=== PATIENT | female | born 1995 | race Two or more races ===

== ENCOUNTER 2021-02-13 14:08 | Outpatient (REF) | payer OTHER, SELFPAY | END 2021-02-13 14:09 | disposition home or self-care (01) | LOC: HO.SCI 14:08 | PROVIDERS: PCP Physician Assistant Medical; Visit Provider Psychiatry & Neurology Neurology | DX: Z13.89 Encounter for screening for other disorder (principal) ==

== ENCOUNTER → 2021-02-20 13:25 | Outpatient (REF) | payer OTHER, SELFPAY ==
--- NOTE | 2021-02-20 13:33 | ECG_ITS ---
Hook-up date: 2021-02-20 13:43:00 Duration: 47:59:00 Test Indications: SYNCOPE Medications: [id number] QRS complexes 3 Ventricular ectopics which represent <1 % of total QRS comp. * Supraventricular ectopics which represent % of total QRS comp. * Paced QRS complexs which represent % of total QRS comp. VENTRICULAR ECTOPY 3 Isolated 0 Bigeminal Cycles 0 Couplets 0 Runs 0 Beats in Runs * Beats LONGEST at * BPM at :: -- * Beats FASTEST at * BPM at :: -- SUPRAVENTRICULAR ECTOPY * Isolated * Couplets * Runs * Beats in Runs * Beats LONGEST at * BPM at :: -- * Beats FASTEST at * BPM at :: -- HEART RATES 49 MIN at 05:47:50 2021-02-21 87 AVG 183 MAX at 16:45:42 2021-02-21 LONGEST RR 1.3280 secs at 05:47:44 2021-02-21 S-T LEVELS Channel 1 - 128 mm at 13:43:00 2021-02-20 - 128 mm at 13:43:00 2021-02-20 Channel 2 - 128 mm at 13:43:00 2021-02-20 - 128 mm at 13:43:00 2021-02-20 Channel 3 - 128 mm at 03:30:21 -- - 128 mm at 03:30:21 Basic rhythm Normal sinus rhythm No long pause or profound bradycardia Frequent Sinus tachycardia No dangerous dysrhythm periods No diary submitted Referred By: Nadine Rueda Overread By: EL BACK MD
== END ==
LOC: HO.CARD 13:25
PROVIDERS: Visit Provider Psychiatry & Neurology Neurology
DX: R55 Syncope and collapse (principal)
CPT/HCPCS: 93225; 93226

== ENCOUNTER 2021-09-29 01:33 | Emergency (ER) | payer OTHER, SELFPAY ==
[2021-09-29] VITALS (7 sets, daily range): BP systolic 99–121; BP diastolic 55–90; PULSE 84–116; RESP 13–16; TEMP 36.4–36.7; O2SAT 95–98; BMI 28.4
--- NOTE | 2021-09-29 01:49 | PC.NURSE ---
Addendum entered by Bismark Carroll RN 09/29/21 06:44: Pt's mother also stated that pt has a hx of syncope and has been followed by cardiology and neurology, but with no significant findings. Pt's friend thought pt had a seizure tonight, but it was most likely just effects of alcohol intoxication. Original Note: Balwinder ARAIZA called pt's mother Yolanda Braga, , to get information on pt's allergies, medication, and pharmacy. Pt's mother's contact info was provided by friend that accompanied pt.
[2021-09-29 02:34] LABS: MANUAL DIFF FLAG NO
[2021-09-29 02:37] LABS: Basophils Percent Auto 0.4 % (0-2); Eosinophils Absolute Auto 0.2 X10*3/uL (0.0-0.4); Eosinophils Percent Auto 1.4 % (0-4); Hematocrit 36.1 % (37.0-47.0); Imm Gran Abs Auto 0.04 X10*3/uL (0.00-0.03); Imm Gran Pct Auto 0.4 % (0.0-0.4); Lymphocytes Percent Auto 35.9 % (20-40); Mean Corpuscular HGB Conc 33.2 g/dl (31.0-35.0); Mean Corpuscular Hemoglobin 28.2 pg (27.0-33.0); Mean Corpuscular Volume 84.7 fL (80.0-98.0); Mean Platelet Volume 9.6 fL (9.4-12.3); Monocytes Absolute Auto 0.7 X10*3/uL (0.1-1.2); Monocytes Percent Auto 6.2 % (2-11); Neutrophils Absolute Auto 6.2 x10*3/uL (2.0-8.3); Neutrophils Percent Auto 55.7 % (45-73); Platelet Count 440 X10*3/uL (160-400); Red Blood Count 4.26 X10*6/uL (4.20-5.50); Red Cell Distribution Width 12.8 % (11.0-16.0); White Blood Count 11.2 X10*3/uL (4.8-10.8)
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
[2021-09-29 02:49] LABS: Ethanol 349 mg/dL
[2021-09-29 02:50] LABS: Anion Gap 19 (12-20); Blood Urea Nitrogen 11 mg/dL (9-16); Calcium 9.6 mg/dL (8.4-10.2); Carbon Dioxide 20 mmol/L (22-29); Chloride 107 mmol/L (96-108); Creatinine Clr Calc Pharmacy 110.4; Estimated Glomerular Filt Rate > 60; Glucose Random 130 mg/dL (60-115); Potassium 3.5 mmol/L (3.3-5.1); Sodium 142 mmol/L (135-145)
[2021-09-29 03:26] LABS: HCG Quantitative 89 mIU/mL
--- NOTE | 2021-09-29 08:12 | PC.NURSE ---
Pt mother at bedside as sober ride for pt. Pts mother verbalized understanding of DC instructions. Pt is a/o at this time. Pt aware to followup with pcp.
== END 2021-09-29 08:13 | disposition home or self-care (01) ==
PROVIDERS: Emergency Provider Student in an Organized Health Care Education/Training Program
DX: F10.129 Alcohol abuse with intoxication, unspecified (principal); Y90.8 Blood alcohol level of 240 mg/100 ml or more
CPT/HCPCS: 36415; 80048; 82077; 84702; 85025; 99284

== ENCOUNTER → 2022-06-10 10:59 | Outpatient (BNVA) | payer OTHER, SELFPAY | PROVIDERS: Visit Provider Student in an Organized Health Care Education/Training Program | DX: M25.551 Pain in right hip (principal); M25.552 Pain in left hip; R76.8 Other specified abnormal immunological findings in serum | CPT/HCPCS: 99202 ==

== ENCOUNTER 2022-07-30 15:31 | Outpatient (RCR) | payer OTHER, SELFPAY | END 2022-08-19 14:04 | disposition home or self-care (01) | LOC: HO.PT 15:31 | PROVIDERS: PCP Internal Medicine; Visit Provider Student in an Organized Health Care Education/Training Program | DX: M25.551 Pain in right hip (principal); M25.552 Pain in left hip | CPT/HCPCS: 97110; 97161 ==